=== PATIENT | female | born 1990 ===

== ENCOUNTER 2024-12-13 18:39 | Emergency (ER) | payer BC ==
[2024-12-13] MEDS: Lidocaine 1% PF 2 ML SDV INJECT ONE (19:35)
[2024-12-13] MEDS: Acetaminophen/HYDROcodone 325-5 MG Tab PO ONE (20:02)
== END 2024-12-13 20:08 | disposition home or self-care (01) ==
LOC: MW.ED 18:39
DX: S61.211A Laceration without foreign body of left index finger without damage to nail, initial encounter (principal); Z79.899 Other long term (current) drug therapy; Z79.84 Long term (current) use of oral hypoglycemic drugs; W26.0XXA Contact with knife, initial encounter; Y93.89 Activity, other specified
CPT/HCPCS: 12001; 99282; A9270; J2003; 99283